=== PATIENT | male | born 1935 | race Caucasian/White ===

== ENCOUNTER 2016-10-27 18:19 | Observation (INO) ==
--- NOTE | 2016-10-27 20:13 | Internal Med History&Physical ---
<Ted Haynes - Last Filed: 10/27/16 21:32> Date of Encounter: 10/27/16 Time of Encounter: 20:00 Assessment and Plan (1) New onset a-fib Current visit: No Status: Acute -No previous history of chest pain or cardiac disease -Asymptomatic at rest. Currently in afib with HR 80 -ECHO in 05/31 shows LVH, Dialated RV, EF 55-60% -Compared new and old EKG. Both show RBB. -Toponin negative according to transfer records -Patient stable -CHADSVASC 3, appropriate for anticoagulation. Patient is in agreement. -Will order TSH/T4 to evaluate thyroid dysfunction/cause of tachycardia Plan -Continuous telemetry monitoring -Will start xerelto when Cr Cl lab available. -Continue previous home metoprolol dose 25mg, -Repeat ECHO to evaluate previous abnormalities -No cardio consult. Patient has established PCP and feel patient will be compliant as outpatient. -Cardiac diet -Likely discharge tomorrow if asymptomatic/normal test results (2) Prostate cancer Current visit: Yes Status: Acute -Underwent radiation >5 years ago (3) Urinary incontinence Current visit: Yes Status: Acute -Continue home medication....patient mentioned oxybutynin, but unsure of dose. Need further clarification before restarting. Qualifiers: Urinary Incontinence type: unspecified incontinence Qualified Code(s): R32 - Unspecified urinary incontinence (4) Arthritis Current visit: Yes Status: Acute -Continue Tylenol once confirmed Internal Medicine - H&P: HPI Chief complaint: L sided chest pain Admitted From: Hospital to Hospital Transfer Plans for Post Hospital Care: Home History of present illness: Mr. Mcnally is a 81 year old male, PMH HTN, Prostate cancer, admitted for new- onset afib. Patient presented to the ED complaining of intermittent left-sided chest pain that began at 1 AM this morning. Occurred while going to the bathroom. Described as sharp and stabbing, nonradiating, lasting 30 seconds. Resolved with rest. He continues to have episodes periodically when he ambulates to the bathroom. Admits to SOB when he ambulates and "unable to mow my lawn anymore or I get SOB when walking up 3 stairs" Denies dizziness, blurred vision, shortness of breath, nausea, vomiting, diaphoresis, back pain, acid reflux. Denies history of CAD, PA, arrythmia. Did have a syncope like episode 5 years ago. Underwent cardio workup with Dr. Mcwilliams that was uneventful. Past Med Surg Social Fam HX - Past Medical History Medical history: hypertension, syncope Psychiatric history: no psych history - Past Surgical History Surgical History: other (back) - Social History Smoking Status: Never smoker Smokeless Tobacco Status: No Alcohol use: none Drug use: none - Additional Family History Additional family history: No family history. Internal Medicine - H&P: Meds Aspirin 81 mg PO DAILY 06/14/15 [History] Potassium Chloride [K-Tab ER] 20 meq PO DAILY 02/23/16 [History] Docusate [Colace] 100 mg PO DAILY PRN 10/27/16 [History] Gluc Huggins/Chondro Huggins A/Vit C/Mn [Glucosamine Chondroitin Tab] 1 each PO DAILY [History] Hydrocortisone Valerate 1 appl TP DAILY PRN 10/27/16 [History] Omeprazole [PriLOSEC] 20 mg PO DAILY 10/27/16 [History] Oxybutynin Chloride [Ditropan Xl] 10 mg PO DAILY 10/27/16 [History] Triamterene/HCTZ 37.5/25mg [Dyazide] 1 each PO DAILY 10/27/16 [History] Allergies No Known Allergies Allergy (Verified 03/28/16 12:35) All Systems PM: A 10-system review of systems was performed and is negative for pertinent findings except as documented above in the HPI. - Cardiovascular Cardiovascular ROS IM: dyspnea on exertion, no diaphoresis, no dyspnea - Respiratory Respiratory: no cough, no dyspnea, no wheezing, no excessive phlegm production - Gastrointestinal Gastrointestinal: no abdominal pain, no diarrhea, no hematemesis, no hematochezia, no melena, no nausea, no vomiting - Neurological Neurological ROS: no confusion, no dizziness - Constitutional General appearance: Present: A&O X 3, pleasant, answers questions appropriately - Head Head exam: Present: atraumatic, normocephalic - Eye Eye exam: Present: PERRL, conjuntiva pink, sclera anicteric Pupils: Present: PERRL - Respiratory Respiratory exam: Present: CTAB. Absent: accessory muscle use, rales, rhonchi, wheezes - Cardiovascular Cardiovascular exam: Present: irregular rhythm. Absent: diastolic murmur, systolic murmur - GI/Abdominal GI/Abdominal exam: Present: no peritoneal signs - Back Exam Additional comments: No pain radiating between scapula - Neurological Exam Neurological exam: Present: oriented X3, no focal deficits. Absent: pronater drift, facial droop, speech deficit - Psychiatric Psychiatric exam: Present: normal affect, normal mood - Other Additional findings: Palpation on chest does not reproduce pain. <Glenn Mix - Last Filed: 10/28/16 04:39> Date of Encounter: 10/27/16 Internal Medicine - H&P: HPI History of present illness: Mr. Mcnally is a 81 year old male All Systems PM: A 10-system review of systems was performed and is negative for pertinent findings except as documented above in the HPI. - Constitutional Vitals: Temp Pulse Resp BP Pulse Ox 98 F 92 16 116/74 95 10/27/16 22:59 10/27/16 22:59 10/27/16 22:59 10/27/16 22:59 10/27/16 22:59 Internal Med - H&P Results - Labs CBC & Chem 7: 10/27/16 22:02 10/27/16 22:02 Labs: Short CBC 10/27/16 Range/Units 22:02 WBC 6.2 (4.3-11.1) K/mcL Hgb 13.1 (12.9-16.9) g/dL Hct 39.6 (37.5-50.1) % Plt Count 205 (140-400) K/mcL Neutrophils # 4.0 (1.6-8.9) K/mcL BMP 10/27/16 22:02 Sodium 139 Potassium 3.3 L Chloride 101 Carbon Dioxide 31 H BUN 21 Creatinine 1.16 Glucose 89 Calcium 9.5 Cardiac Enzymes 10/27/16 Range/Units 22:02 Troponin I 0.01 (0-0.03) ng/mL - EKG Data -: EKG Interpreted by Myself (AFIB with RVR of 113) - Attending Attestation I personally interviewed and examined this patient and my medical decision- making was reviewed with the Resident Physician. I agree with the documented findings, disposition and treatment plan as described.
[2016-10-27 22:30] LABS: Basophils % 0.5 %; Eosinophils # 0.2 K/mcL (0.0-0.6); Eosinophils % 2.7 %; Hematocrit 39.6 % (37.5-50.1); Hemoglobin 13.1 g/dL (12.9-16.9); Immature Granulocytes % 0.3 % (0-4); Lymphocytes # 1.4 K/mcL (0.6-4.6); Lymphocytes % 22.3 %; Mean Corpuscular HGB Conc 33.1 g/dL (31.6-35.5); Mean Corpuscular Hemoglobin 29.4 pg (28.0-33.3); Mean Corpuscular Volume 88.8 fL (83.0-100.0); Mean Platelet Volume 10.1 fL (9.4-12.4); Monocytes # 0.6 K/mcL (0.0-1.3); Monocytes % 10.2 %; Platelet Count 205 K/mcL (140-400); Red Blood Count 4.46 M/mcL (4.19-5.50); Red Cell Distribution Width 13.9 % (11.5-14.5)
[2016-10-27 22:35] LABS: INR 1.2; Prothrombin Time 12.8 Seconds (9.4-12.1)
[2016-10-27 22:38] LABS: Activated Partial Thrombo Time 34.8 Seconds (26.0-36.0)
[2016-10-27 22:45] LABS: BUN/Creatinine Ratio 18 (6-26); Blood Urea Nitrogen 21 mg/dL (8-26); Calcium 9.5 mg/dL (8.6-10.8); Carbon Dioxide 31 mEq/L (19-29); Chloride 101 mEq/L (98-109); Glucose 89 mg/dL (70-99); Osmolality,Calculated 290 (280-300); Potassium 3.3 mEq/L (3.5-4.5); Sodium 139 mEq/L (136-145); eGFR For African Americans > 60 (> 60); eGFR For Non-African Americans > 60 (> 60)
[2016-10-27] MEDS ORDERED: *HR* Rivaroxaban 10 MG TABLET PO SCH (23:00)
[2016-10-27] MEDS: Metoprolol XL (24 HR) Succ 25 MG TAB.ER.24H PO SCH (23:04)
[2016-10-27 23:17] LABS: Thyroid Stimulating Hormone 1.336 mcIU/mL (0.350-4.840)
[2016-10-27] MEDS ORDERED: Naloxone 0.4 MG/ML INJ IVP PRN (23:59)
[2016-10-28] MEDS ORDERED: Potassium Chloride Elixir 20 MEQ/15 ML UDC PO ONE (00:02)
[2016-10-28 05:35] LABS: Basophils % 0.5 %; Eosinophils # 0.2 K/mcL (0.0-0.6); Eosinophils % 3.8 %; Hematocrit 38.8 % (37.5-50.1); Immature Granulocytes % 0.3 % (0-4); Lymphocytes # 1.3 K/mcL (0.6-4.6); Lymphocytes % 22.7 %; Mean Corpuscular HGB Conc 33.5 g/dL (31.6-35.5); Mean Corpuscular Hemoglobin 29.6 pg (28.0-33.3); Mean Corpuscular Volume 88.4 fL (83.0-100.0); Mean Platelet Volume 10.6 fL (9.4-12.4); Monocytes # 0.7 K/mcL (0.0-1.3); Monocytes % 11.8 %; Neutrophils # 3.5 K/mcL (1.6-8.9); Platelet Count 196 K/mcL (140-400); Red Blood Count 4.39 M/mcL (4.19-5.50); Red Cell Distribution Width 13.8 % (11.5-14.5); Segmented Neutrophils % 60.9 %
[2016-10-28 05:56] LABS: BUN/Creatinine Ratio 19 (6-26); Blood Urea Nitrogen 20 mg/dL (8-26); Calcium 9.5 mg/dL (8.6-10.8); Carbon Dioxide 27 mEq/L (19-29); Chloride 104 mEq/L (98-109); Chol/HDL Ratio 3.4 (0-4.9); Cholesterol 155 mg/dL (< 200); Glucose 90 mg/dL (70-99); HDL Cholesterol 45 mg/dL (40-59); LDL Cholesterol,Calculated 93 mg/dL (0-99); Magnesium 1.6 mg/dL (1.6-2.6); Osmolality,Calculated 290 (280-300); Sodium 139 mEq/L (136-145); Triglycerides 87 mg/dL (< 150); eGFR For African Americans > 60 (> 60); eGFR For Non-African Americans > 60 (> 60)
[2016-10-28 06:06] LABS: Hemoglobin A1C 5.4 %
[2016-10-28] MEDS ORDERED: (Glucosamine Chondroit) PO SCH (09:00)
[2016-10-28] MEDS ORDERED: Aspirin 81 MG TAB.CHEW PO SCH (09:00)
[2016-10-28] MEDS: Metoprolol XL (24 HR) Succ 25 MG TAB.ER.24H PO SCH (09:21)
[2016-10-28] MEDS: Triamcinolone Acet 0.1% CRM 15 GM TUBE TP SCH ×2 (09:23→14:13)
--- NOTE | 2016-10-28 13:53 | ECHO - Doppler Report ---
Echocardiogram Name: Juan J Mcnally Date of Study: 10/28/2016 Date: 1935 Ht: 71.0 in Medical Record#: [id number] Age: 81 Wt: 202.0 lb Gender: Male BSA: 2.12 Order #: [id number] Location: [facility] Room #: 3B Reading Physician: Eh Paz DO, ROCÍO VASQUEZ Senior Benefits Manager: Mackenzie Pisano Ordering Physician: Ted Haynes DO Primary Physician: Amie Kramer CNP Indications: AFIB Impressions: LVEF 50%. Not all LV segments were well visualized. Overall, LV function appeared normal. Mild concentric left ventricular hypertrophy. Indeterminate diastolic function. Right ventricle was not well visualized. Grossly, right ventricular function appears normal. No evidence of pulmonary hypertension. No significant valvular dysfunction. Findings: Study Quality * Technically sub-optimal due to poor echocardiographic windows. ECG Findings * Atrial fibrillation. Left Ventricle * LVEF 50%. * Not all LV segments were well visualized. Overall, LV function appeared normal. Normal LV chamber size. * Mild concentric left ventricular hypertrophy. * Indeterminate diastolic function. Right Ventricle * Right ventricle was not well visualized. Grossly, right ventricular function appears normal. Left Atrium * Mildly dilated left atrium. Right Atrium * Mildly dilated right atrium. Interatrial Septum * Interatrial septum not well evaluated. Aortic Valve * Aortic valve not well visualized. * No aortic regurgitation. * No aortic stenosis. Mitral Valve * Normal mitral valve structure and function. * No mitral regurgitation. * No mitral stenosis. Tricuspid Valve * Normal tricuspid valve structure and function. * Trace tricuspid regurgitation. * No evidence of pulmonary hypertension. Pulmonic Valve * Pulmonic valve not well visualized. Aorta * Normally sized aortic root. Pericardium * The pericardium appears normal. IVC * The IVC is not well evaluated. Pulmonary Artery * Pulmonary artery not well visualized. History Hypertension 06/08/15 a Previous Echo was performed. Measurements: BP: 112/ 72 2D Normal Values RVIDd: 3.80 cm <2.7 cm IVSd: 1.30 cm 0.6 - 1.0 cm LVIDd: 4.00 cm 3.7 - 5.6 cm LVPWd: 1.30 cm 0.6 - 1.1 cm LVIDs: 3.20 cm 1.5 - 3.6 cm AO: 3.30 cm < 4.0 cm LA: 4.10 cm 2.0 - 4.0cm %FS: 20.00 cm >25 % LA volume: 38 Mitral Valve Peak E:.60 m/sec Peak E' Lat Dony:11.6 cm/s Peak E' Med Dony:9.26 cm/s E/E' Lat Ratio:5.2 E/E' Med Ratio:6.5 Tricuspid Valve TV Regurg Peak Grad: 21.00mmHg TV Regurg Peak Dony: 2.31m/sec Updated by Eh Paz DO, FACFernando, ROCÍO, ARIANNA on 10/28/2016 1:47:45 PM electronically signed on 10/28/2016 1:49:00 PM with status of Final Wall Motion Rincon: 1=Normal, 2=Hypokinesis, 3=Akinesis, 4=Dyskinesis, 5=Aneurysmal, 6=Hyperkinetic, X=Not Visualized (Blank)=Missing
--- NOTE | 2016-10-28 14:27 | Discharge Summary ---
Date of Encounter: 10/28/16 Time of Encounter: 09:40 - Discharge Diagnosis (1) New onset a-fib Priority: Primary Status: Acute Comments: Patient denies any history of cardiac disease or chest pain in the past. Currently he is asymptomatic and is resting easily in his bed. He reports left chest pain once yesterday. It was very sharp and did not radiate. He denied shortness of breath, nausea, during vomiting, or diaphoresis. He rated it a 10 out of 10. He was seen at [facility] and was transferred here for evaluation. He has not had the chest pain since. Echocardiogram today showed LVEF of 50%. Not all LV segments were well visualized however the function appeared normal. Mild concentric left ventricular hypertrophy. Indeterminate diastolic function. Right ventricular function appears normal. His troponins were negative, as was his chest x-ray. His EKG here and at [place] both showed sinus rhythm with right bundle branch block. His TSH and T4 were both negative and within normal limits. He was started on Xarelto today. He will be sent home with a prescription. He was also started on metoprolol 25 mg by mouth twice a day, which he will continue at home. (2) Prostate cancer Priority: Secondary Status: Chronic Comments: Patient was initially diagnosed with prostate cancer in 2002. It was observed until 2005 when he did radiation. (3) Urinary incontinence Priority: Secondary Status: Acute Comments: Chronic. Patient taking Ditropan. Will continue at home. Qualifiers: Urinary Incontinence type: unspecified incontinence Qualified Code(s): R32 - Unspecified urinary incontinence (4) Arthritis Priority: Secondary Status: Chronic Comments: Chronic. - Discharge Medications Prescriptions: Metoprolol XL (24 HR) Succ [Toprol Xl] 25 mg PO DAILY #30 tab.er.24h Rivaroxaban [Xarelto] 20 mg PO DAILY #30 tablet Home Medications: Aspirin 81 mg PO DAILY 06/14/15 [History] Potassium Chloride [K-Tab ER] 20 meq PO DAILY 02/23/16 [History] Docusate [Colace] 100 mg PO DAILY PRN 10/27/16 [History] Gluc Huggins/Chondro Huggins A/Vit C/Mn [Glucosamine Chondroitin Tab] 1 each PO DAILY [History] Hydrocortisone Valerate 1 appl TP DAILY PRN 10/27/16 [History] Omeprazole [PriLOSEC] 20 mg PO DAILY 10/27/16 [History] Oxybutynin Chloride [Ditropan Xl] 10 mg PO DAILY 10/27/16 [History] Triamterene/HCTZ 37.5/25mg [Dyazide] 1 each PO DAILY 10/27/16 [History] Metoprolol XL (24 HR) Succ [Toprol Xl] 25 mg PO DAILY #30 tab.er.24h 10/28/16 [ Rx] Rivaroxaban [Xarelto] 20 mg PO DAILY #30 tablet 10/28/16 [Rx] Allergies/Adverse Reactions: Allergies No Known Allergies Allergy (Verified 03/28/16 12:35) Procedures/tests Complete & Pending: Procedures Performed prior 72 hours Category Date Time Status EV echocardiogram Routine Y 10/28/16 21:32 Completed Date of admission: 10/27/16 19:20 Primary care physician: Amie Kramer CNP Discharging clinician: Viky Florence - Patient Status Disposition: Home, Self-Care Condition: Good Functional capacity at discharge: independent ambulation Overall status at discharge: patient is back to baseline - Discharge Instructions Follow Up With: Amie Kramer CNP [Primary Care Provider] - 11/01/16 1:00 pm - Diet and Activity Activity: increase activity as tolerated Diet: advance to your usual diet Hospital course: Mr. Mcnally is a 81 year old male with a history of prostate cancer, urinary incontinence, and arthritis. He is alert and oriented and very energetic for his age. He presented to [facility] emergency department yesterday with sudden onset left chest pain that was sharp, without radiation. He denied any associated symptoms such as shortness of breath, diaphoresis, vomiting, nausea. His cardiac workup was negative. Troponins were negative as was his chest x- ray. Echocardiogram today shows LVEF of 50% with normal LV function. Indeterminate diastolic function. He says that he has been very weak for the last few months and has trouble doing much of anything. He says that he cannot mow his yard anymore and becomes weak with walking. He says he is dizzy and lightheaded, but has been since 200 he started radiation for his prostate cancer. He denies change in frequency or intensity of dizziness and lightheadedness. He denies palpitations. He denies shortness of breath as well. His lungs are clear posteriorly and he has +1 nonpitting edema to bilateral lower extremities. He says that is normal for him. He is not appeared to be in fluid overload at this time. His vital signs have remained within normal limits and stable, all labs are within normal limits. He says that he wants to follow-up with his primary care physician and does not need to follow-up with cardiology. Patient is stable for discharge. - Time Spent with Patient Total time spent providing and/or coordinating discharge services: - Constitutional Vitals: Temp Pulse Resp BP Pulse Ox 96.3 F L 83 16 112/64 93 10/28/16 11:34 10/28/16 11:34 10/28/16 11:34 10/28/16 11:34 10/28/16 11:34 General appearance: Present: cooperative, A&O X 3, pleasant, answers questions appropriately - Head Head exam: Present: normal inspection - Eye Eye exam: Present: normal appearance - ENT ENT exam: Present: mucous membranes moist, normal exam - Neck Neck exam general surgery: Present: normal inspection. Absent: lymphadenopathy , tenderness - Respiratory Respiratory exam: Present: decreased breath sounds. Absent: accessory muscle use, chest wall tenderness, rhonchi, wheezes - Cardiovascular Cardiovascular exam: Present: irregular rhythm, +S1, +S2. Absent: diastolic murmur, systolic murmur - Expanded Cardiovascular Exam Peripheral pulses: 1+: Dorsalis Pedis (L) PM, Dorsalis Pedis (R) PM - GI/Abdominal GI/Abdominal exam: Present: normal bowel sounds, soft. Absent: hepatomegaly, tenderness - Extremities Exam Extremities exam: Present: normal inspection, pedal edema, warm, radial pulses palpable and symetrical. Absent: tenderness - Neurological Exam Neurological exam: Present: alert, oriented X3, no focal deficits. Absent: motor sensory deficit, facial droop, speech deficit
[2016-10-28 14:55] VITALS: BP 119/75
== END 2016-10-28 16:45 | disposition home or self-care (01) ==
LOC: 3BNU
PROVIDERS: ADMIT Internal Medicine Endocrinology, Diabetes & Metabolism; ATTEND Registered Nurse

== ENCOUNTER 2019-03-11 08:29 | Observation (INO) ==
[~2019-03-11 08:29] MED LIST: Bacitracin 50,000 UNIT, Polymyxin B Sulfate 500,000 UNIT, Sodium Chloride IRRigation 1,... IR ONE
--- NOTE | 2019-03-11 08:29 | Anesthesia Evaluation PreOp ---
Date of Encounter: 03/11/19 Time of Encounter: 08:53 - Past History Cardiac History: Arrhythmia (A FIB), Other (STRESS TEST NORMAL EF 61%) Alcohol Use: none Drug use: none Medications and Allergies Aspirin 81 mg PO DAILY 06/14/15 [History] Potassium Chloride [K-Tab ER] 20 meq PO DAILY 02/23/16 [History] Docusate [Colace] 100 mg PO DAILY PRN 10/27/16 [History] Gluc Huggins/Chondro Huggins A/Vit C/Mn [Glucosamine Chondroitin Tab] 1 each PO DAILY 10/27/16 [History] Hydrocortisone Valerate 1 appl TP DAILY PRN 10/27/16 [History] Omeprazole [PriLOSEC] 20 mg PO DAILY 10/27/16 [History] Oxybutynin Chloride [Ditropan XL] 10 mg PO DAILY 10/27/16 [History] Triamterene/HCTZ 37.5/25mg [Dyazide] 1 each PO DAILY 10/27/16 [History] Metoprolol XL (24 HR) Succ [Toprol Xl] 25 mg PO DAILY #30 tab.er.24h 10/28/16 [Rx] Rivaroxaban [Xarelto] 20 mg PO DAILY #30 tablet 10/28/16 [Rx] Morphine Sulfate [Arymo ER] 15 mg PO Q8H PRN 3 Days #9 tab.po.er 01/23/19 [Rx] Allergy/AdvReac Type Severity Reaction Status Date / Time oxybutynin Allergy Confusion Verified 03/06/19 14:38 - Meds/Allergy Pre-op Review Medications Reviewed: Yes Allergies Reviewed: Yes Beta Blockers on Current Med List: Yes Anesthesia Results - Labs Laboratory Tests 12/19/18 03/06/19 03/06/19 15:17 15:02 15:02 Hgb 13.4 Hct 42.8 Plt Count 319 PT 11.9 APTT 37.8 H Sodium Potassium Prostate Specific Ag 11.66 H 03/06/19 15:02 Hgb Hct Plt Count PT APTT Sodium 136 Potassium 4.1 Prostate Specific Ag - Imaging EKG: report reviewed, image reviewed
[2019-03-11] MEDS ORDERED: CeFAZolin Syr 2,000MG/20 ML 2,000 MG/20 ML SYRINGE IVPB ONE (09:00)
[2019-03-11] MEDS ORDERED: Ringers Solution, Lactated 1,000 ML IVC SCH ×2 (09:00→13:02)
--- NOTE | 2019-03-11 09:17 | Anesthesia Evaluation PreOp ---
Date of Encounter: 03/11/19 Time of Encounter: 09:14 - Past History Planned Operation: LUM ERWIN Cardiac History: HTN, Hyperlipidemia, Arrhythmia (A FIB HR 144 ON PREOP EKG FOR STRESS TEST, CURRENTLY 125 - GIVING MORNING METOPROLOL DOSE) DESKTOP PUBLISHING SPECIALIST History: Other (LUMBAR RADICULOPATHY (URINARY AND BOWEL INCONTINENCE FROM RADIATION FOR PROSTATE CANCER 13 YEARS AGO) LEFT ER AMA 02/01) Other Medical History: GERD Anesthesia History: No Prior Anesthetic Complications, Past Anesthesia (SPINE SURGERY 1983, CATARACT, NSR, CIRC, PROSTATE BIOPSY, NECK MASS 2013) Alcohol Use: none Drug use: none Medications and Allergies Aspirin 81 mg PO DAILY 06/14/15 [History] Potassium Chloride [K-Tab ER] 20 meq PO DAILY 02/23/16 [History] Docusate [Colace] 100 mg PO DAILY PRN 10/27/16 [History] Gluc Huggins/Chondro Huggins A/Vit C/Mn [Glucosamine Chondroitin Tab] 1 each PO DAILY 10/27/16 [History] Hydrocortisone Valerate 1 appl TP DAILY PRN 10/27/16 [History] Omeprazole [PriLOSEC] 20 mg PO DAILY 10/27/16 [History] Oxybutynin Chloride [Ditropan XL] 10 mg PO DAILY 10/27/16 [History] Triamterene/HCTZ 37.5/25mg [Dyazide] 1 each PO DAILY 10/27/16 [History] Metoprolol XL (24 HR) Succ [Toprol Xl] 25 mg PO DAILY #30 tab.er.24h 10/28/16 [Rx] Rivaroxaban [Xarelto] 20 mg PO DAILY #30 tablet 10/28/16 [Rx] Morphine Sulfate [Arymo ER] 15 mg PO Q8H PRN 3 Days #9 tab.po.er 01/23/19 [Rx] Allergy/AdvReac Type Severity Reaction Status Date / Time oxybutynin Allergy Confusion Verified 03/06/19 14:38 - Meds/Allergy Pre-op Review Medications Reviewed: Yes Allergies Reviewed: Yes Beta Blockers on Current Med List: Yes Anesthesia Results - Labs Laboratory Tests 03/06/19 03/06/19 03/06/19 15:02 15:02 15:02 Hgb 13.4 Hct 42.8 Plt Count 319 PT 11.9 Sodium 136 Potassium 4.1 - Imaging EKG: report reviewed, image reviewed Anesthesia Exam O2 Sat Height 1.8 m Weight 103.873 kg O2 Sat by Pulse Oximetry 96 Vital Signs Temp Pulse Resp BP Pulse Ox 97.8 F 120 18 120/75 96 03/11/19 09:15 03/11/19 09:15 03/11/19 09:15 03/11/19 09:15 03/11/19 09:15 - HEENT Pupil (Motor): Pupils equal, EOMI Mallampati: III Teeth: Normal - DESKTOP PUBLISHING SPECIALIST LOC: Oriented DESKTOP PUBLISHING SPECIALIST Motor: Normal RUE, Normal LUE, Normal Face, Deficit RLE, Deficit LLE DESKTOP PUBLISHING SPECIALIST Sensory: Normal: RUE, LUE, RLE, LLE, Face - Cardiac Rhythm: Regular Murmur: None JVD: No - Pulmonary Breath Sounds: bilateral Clear Respiratory Effort: Symmetrical Anesthesia Assess/Plan ASA Score: 3 Anesthetic Plan: General Monitoring Plan: Standard Monitors Recovery Plan: PACU
--- NOTE | 2019-03-11 10:09 | History & Physical Report ---
Date of Encounter: 03/11/19 Time of Encounter: 10:09 24 Hour HP Update - Instructions Instructions: If the History and Physical is less than 30 days old and was completed prior to A.M. admission and or procedure and has NOT been updated on calendar day of procedure please complete this update prior to performing procedure. - Update Patient reports changes in Medical Condition: No Changes in examination, assessment, or condition: No Changes in Medication: No Preop tests/diagnostics Reviewed: Yes Pre-Op MRSA Screen: Negative Surgery Remains Indicated: Yes Consent for Planned Operative Procedure(s) Verified: Yes - Pre-Operative Checklist Preoperative Checklist Indicated: No Prophylactic Antibiotic Ordered: Yes Home Medications Include Beta Daryn: Yes Beta Daryn Taken Today (Day of Surgery): No Beta Daryn Taken Yesterday (Day Prior to Surgery): Yes Is VTE Prophylaxis Indicated?: Yes
[2019-03-11] MEDS ORDERED: Dexamethasone 4 MG/ML VIAL ONE (10:27)
[2019-03-11] MEDS ORDERED: Ondansetron 4 MG/2 ML VIAL ONE (10:27)
[2019-03-11] MEDS ORDERED: *HR* FentaNYL (PF) 100 MCG/2 ML VIAL ONE (10:27)
[2019-03-11] MEDS ORDERED: Lidocaine -MPF 2% 2 ML VIAL ONE (10:27)
[2019-03-11] MEDS ORDERED: *HR* Succinylcholine 200 MG/10 ML VIAL IVP ONE (10:27)
[2019-03-11] MEDS ORDERED: *HR* Propofol 200 MG/20 ML VIAL IVP ONE (10:27)
[2019-03-11] MEDS ORDERED: Lidocaine -MPF 4% 5 ML AMPUL ONE (10:27)
[2019-03-11] MEDS ORDERED: *HR* PHENYLEPHRINE 1,000 MCG/10 ML SYRINGE IVP ONE (11:01)
[2019-03-11] MEDS ORDERED: *HR* HYDROMORPHONE 2 MG/ML VIAL ONE (12:04)
--- NOTE | 2019-03-11 12:22 | Orthopedic Operative Note ---
Date of procedure: 03/11/19 Pre-op diagnosis: Lumbar stenosis, lumbar radiculopathy Post-op diagnosis: same Operation/Findings: Laminectomy L3-4: The patient was brought to the operative theater where he underwent general endotracheal anesthesia. He was given antibiotics prior to the start of the procedure. Compression boots and stockings were used for deep vein thrombosis prophylaxis. The patient was placed prone on a Peng table. The back was prepped and draped in the usual sterile fashion. An incision was marked and centered over the L3-L4 interspaces in the midline. We used Bovie cautery to make an incision and then this incision was deepened through the lumbar fascia. Bovie cautery and Charles elevators were used to reflect the paraspinal musculature to the lateral extent of the L3-4 facet joints bilaterally. Samanta clamps were placed over the spinous processes of L3 and L4 and an intraoperative lateral fluorograph was obtained. A discusssion was held between the radiologist and surgeon who both confirmed we were at the correct operative level. We then removed the supraspinous and interspinous ligaments between L3 and L4 and subsequently removed the ligamentum flavum from its origin on the distal undersurface of the L3 lamina. The ligamentum flavum was noted to be quite hypertrophied as well as the facets were hypertrophied. This required performing a laminectomy of L3 with partial medial facetectomies including undercutting of the L3-L4 facets to decompress the lateral recesses. After the decompression was complete we checked the foramen and the traversing nerve roots at L3-4 and they were found to be free and patent. We copiously irrigated the wound and then closed the wound in layers with 1 Vicryl for the fascia, 2-0 Vicryl for the subcutaneous tissue, and Dermabond was used for skin closure. Sterile dressings were placed over the wound, the patient was turned supine in a hospital bed, and was extubated in the operative theater. All sponge needles and instrument counts were correct at the end of the procedure. The patient tolerated the procedure well without complications. Anesthesia: GETA Surgeon: Flaquito Jackman Jr Was there an preschool teacher's assistant present: No Estimated blood loss (cc): 60 Specimen: None Condition: stable Disposition: PACU
--- NOTE | 2019-03-11 12:50 | Anesthesia Evaluation Post Op ---
Date of Encounter: 03/11/19 Time of Encounter: 12:49 - Vital Signs Vital Signs: Vital Signs/O2 Sat, Most Current Temp Pulse Resp BP Pulse Ox 97.9 F 90 13 121/88 95 03/11/19 12:28 03/11/19 12:38 03/11/19 12:38 03/11/19 12:38 03/11/19 12:38 - Lungs Lungs: Clear Ascult./Percussion - Airway Airway: Non-obstructed - Cardiovascular Regular Rate - Mental Status Mental Status: Alert & Oriented, Answers Appropriately - Pain Pain Scale: 3 Pain Scale used: Numeric (1 - 10) - Nausea Vomiting Nausea Vomiting: Not Present - Hydration Hydration: Ice chips - Discharge PostOp Status: Transfer Patient to floor
[2019-03-11] MEDS ORDERED: Acetaminophen 325 MG TABLET PO PRN (13:02)
[2019-03-11] MEDS ORDERED: hydrOXYzine pamoate 25 MG CAPSULE PO PRN (13:02)
[2019-03-11] MEDS ORDERED: Naloxone 0.4 MG/ML INJ IVP PRN (13:02)
[2019-03-11] MEDS ORDERED: Ondansetron 4 MG/2 ML VIAL IVP PRN (13:02)
[2019-03-11] MEDS ORDERED: HYDROCORTISONE VALERATE TP PRN (13:02)
[2019-03-11] MEDS: *HR* HYDROcodone/Acet 5/325 mg TABLET PO PRN (13:30)
[2019-03-12] MEDS: *HR* LORazepam 0.5 MG TABLET PO PRN (01:00)
[2019-03-12] MEDS: *HR* OxyCODONE Immed Rel 5 MG TABLET PO PRN ×2 (06:51→17:15)
[2019-03-12] MEDS: *HR* Rivaroxaban 10 MG TABLET PO SCH (08:50)
[2019-03-12] MEDS: Metoprolol XL (24 HR) Succ 50 MG TAB.ER.24H PO SCH (08:50)
[2019-03-12] MEDS: Aspirin 81 MG TAB.CHEW PO SCH (08:50)
[2019-03-12] MEDS: Multivitamin Liquid 15 ML UDC PO SCH (08:51)
[2019-03-12] MEDS ORDERED: NON-FORMULARY MEDICATION 1 EACH EACH (Mirabegron [Myrbetriq] 50 MG) PO SCH (09:00)
[2019-03-12] MEDS ORDERED: NON-FORMULARY MEDICATION 1 EACH EACH (Gluc/Chon-Msm#1/C/Mang/Bos/Bor [Osteo Bi-Flex Caplet PO SCH (09:00)
[2019-03-12] MEDS ORDERED: *HR* Metoprolol 5 MG/5 ML VIAL IVP ONE (10:10)
[2019-03-12] MEDS ORDERED: Furosemide 40 MG/4 ML VIAL IVP ONE (10:11)
--- NOTE | 2019-03-12 10:27 | Cardiology Consult Note ---
<Karel Saleem R - Last Filed: 03/12/19 10:37> Date of Encounter: 03/12/19 Time of Encounter: 10:23 Assessment and Plan (1) Atrial fibrillation with RVR Current Visit: Yes Status: Acute Known hx of A-Fib, on Toprol XL 50mg daily and anticoagulated on Xarelto. S/P Laminectomy L3-4 yesterday. Per pt, had not taken his meds since Monday. Suspect RVR secondary to meds being held and back pain s/p laminectomy, fluid overload. HR 130s currently. Received Toprol XL 50mg this AM. Will give IV Lopressor 5mg once. Will check HR later today and if still not better rate controlled, will then start cardizem gtt. Give one time dose of IV Lasix. Anticoagulated on Xarelto. Check Labs. Continue to follow. (2) Fluid overload Current Visit: Yes Status: Acute Moderate BLE edema noted on exam. EF preserved on recent TTE. Suspect fluid overload secondary to IV fluids s/p surgery and Dyazide being held. Will give one time dose of IV Lasix 40mg. Continue to follow. Qualifiers: Hypervolemia type: unspecified Qualified Code(s): E87.70 - Fluid overload, unspecified Discussion w patient/family: The assessment and plan as outlined above was discussed with the patient and/or family members who expressed understanding and agreement. All questions were answered. Thank you for involving us in the care of your patient. Please call with any questions. I will discuss all the above with Dr. Mendieta and make changes as necessary. History of Present Illness Consult date: 03/12/19 Consult reason: A-Fib RVR Chief complaint: back pain History of present illness: Mr. Mcnally is a 84 year old male with PMH of essential hypertension and atrial fibrillation anticoagulated on Xarelto. He underwent lumbar laminectomy yesterday 03/11 and is noted to be in A-Fib RVR. Cardiology consulted for further recs. Pt denies chest pain, dyspnea or palpitations. Reports increased BLE edema. States he had not taken any meds since Monday morning. HR 130s at bedside. Prior CV testing: TTE 03/04/19: LVEF 55%. Indeterminate diastolic function. Mildly dilated left atrium. Grossly normal right ventricular size and function. Mild tricuspid regurgitation. No pulmonary hypertension. Nuclear stress test 03/04/19: Gated EF 52%. Perfusion imaging negative for ischemia or infarct. Past Med Surg Social Fam HX - Past Medical History Medical history: atrial fibrillation, cancer, GERD, hyperlipidemia, hypertension, migraine, syncope Additional medical history: prostate ca, lumbar stenosis Psychiatric history: anxiety, depression - Past Surgical History Surgical History: cataract Additional surgical history: SPINAL SURGERY. CATARACTS REMOVED. PROSTATE CANCER. BLADDER DYSFUNCTION DUE TO RADIATION. heart cathh. ex neck mass - Social History Smoking Status: Never smoker Smokeless Tobacco Status: No Alcohol use: none Drug use: none - Family History Father Living Status: Hx Family Cardiac Disorders: Yes (Pacemaker) Mother Living Status: Hx Family Respiratory Disorders: Yes (Emphysema) Medications and Allergies Aspirin 81 mg PO DAILY 06/14/15 [History] Potassium Chloride [K-Tab ER] 20 meq PO DAILY 02/23/16 [History] Docusate [Colace] 100 mg PO DAILY PRN 10/27/16 [History] Hydrocortisone Valerate 1 appl TP DAILY PRN 10/27/16 [History] Omeprazole [PriLOSEC] 20 mg PO DAILY 10/27/16 [History] Triamterene/HCTZ 37.5/25mg [Dyazide] 1 each PO QAM 10/27/16 [History] Gluc/Jong-MSM#1/C/John/Veto/Bor [Osteo Bi-Flex Caplet] 1 tab PO DAILY 03/11/19 [History] LORazepam [Ativan] 0.5 mg PO BID PRN 03/11/19 [History] Metoprolol Succinate [Toprol Xl] 50 mg PO DAILY 03/11/19 [History] Mirabegron [Myrbetriq] 50 mg PO DAILY 03/11/19 [History] Multivitamin [Daily Multiple Vitamin] 1 tab PO DAILY 03/11/19 [History] OxyCODONE/APAP 5/325 [Percocet 5/325 MG] 1 tab PO Q6H PRN 03/11/19 [History] Rivaroxaban [Xarelto] 20 mg PO DAILY 03/11/19 [History] Sertraline [Zoloft] 50 mg PO DAILY 03/11/19 [History] hydrOXYzine HCl [Hydroxyzine HCl] 50 mg PO Q8H PRN 03/11/19 [History] Allergy/AdvReac Type Severity Reaction Status Date / Time oxybutynin Allergy Confusion Verified 03/11/19 10:37 All Systems Review: The remainder of the systems were reviewed and are negative - Cardiovascular Cardiovascular: as per HPI, leg edema - Musculoskeletal Musculoskeletal: back pain Physical Examination Vital Signs, Last 4 Hours Temp Pulse Resp BP 03/12/19 06:33 97.9 F 104 18 132/73 Vital Signs Temp Pulse Resp BP Pulse Ox 03/12/19 06:33 97.9 F 104 18 132/73 03/11/19 18:58 98.0 F 104 17 100/59 96 03/11/19 16:24 97.6 F 84 16 93/65 95 03/11/19 15:17 97.3 F L 84 15 96/62 92 03/11/19 14:15 97.8 F 98 16 119/81 92 03/11/19 13:45 97.8 F 91 16 123/83 97 03/11/19 13:13 97.8 F 85 16 130/86 97 03/11/19 12:58 98.0 F 99 15 140/97 97 03/11/19 12:48 105 13 140/93 95 03/11/19 12:38 90 13 121/88 95 03/11/19 12:28 97.9 F 93 16 128/85 100 Intake and Output 03/11/19 03/12/19 03/12/19 23:59 07:59 15:59 Intake Total 340 / 340 100 / 580 480 / 580 Balance 340 / 280 100 / 580 480 / 580 Intake: IV Fluids 100 / 100 100 / 100 Ancef 2,000 MG In 0.9 % Sodium 100 / 100 100 / 100 Chloride 100 ML @ 200 mls/hr IVPB Q8HR [facility] Rx#:[id number] Oral 240 / 240 480 / 480 Other: Meal Breakfast Percent of Meal Consumed 100% 100% # Urine Diapers 1 Weight 103.9 kg Patient Weight 03/12/19 23:59 Weight 103.9 kg General: Conversant, No Apparent Distress HEENT: Atraumatic, Normocephaly, Mucus Membranes Moist Neck: No JVD, Normal carotid pulses Cardiac: Other Lungs: Normal Breath Sounds, No Wheeze, Rales, Rhonchi Neuro: Alert and responsive, No focal deficits noted Abdomen: Soft, Non-Tender Skin: No rashes noted on visualized skin Musculoskeletal: No Chest Wall Tenderness Extremities: Other (moderate LE edema ) Results - Imaging and Cardiology Stress Test: report reviewed Echo: report reviewed - EKG Interpretation EKG results cardiology: other (12 hr tele AVG HR 105, A-Fib) Consult Discharge Plan - Plan Referrals: Amie Kramer, DRY WALL INSTALLER [Primary Care Provider] - <Mel Mendieta - Last Filed: 03/12/19 12:39> Date of Encounter: 03/12/19 - Attending Attestation I examined this patient and my medical decision-making was reviewed with the DRY WALL INSTALLER. I agree with the documented findings, disposition and treatment plan as described. Mr. Mcnally has known history of AFIB developing RVR post operatively after back surgery. Patient is comfortable at bedside without chest pain and not requiring supplemental oxygen. Recommend restarting home metoprolol which he has not taken since Monday. Will also benefit from IV diuresis. Continue anticoagulation for AFIB. Further recommendations to follow clinical course. Assessment and Plan Discussion w patient/family: The assessment and plan as outlined above was discussed with the patient and/or family members who expressed understanding and agreement. All questions were answered. Thank you for involving us in the care of your patient. Please call with any questions. History of Present Illness History of present illness: Mr. Mcnally is a 84 year old male All Systems Review: The remainder of the systems were reviewed and are negative Results 03/12/19 11:05 03/12/19 11:05 Lab Results 03/12/19 03/12/19 11:05 11:05 WBC 9.8 Hgb 12.3 L Hct 38.9 Plt Count 254 Sodium 139 Potassium 4.5 Chloride 103 Carbon Dioxide 30 H BUN 24 H Creatinine 1.06 Glucose 135 H Calcium 8.9
[2019-03-12 11:16] LABS: Basophils % 0.2 %; Eosinophils # 0.1 K/mcL (0.0-0.6); Eosinophils % 1.3 %; Hematocrit 38.9 % (37.5-50.1); Hemoglobin 12.3 g/dL (12.9-16.9); Immature Granulocytes % 0.3 % (0-4); Lymphocytes # 1.1 K/mcL (0.6-4.6); Lymphocytes % 11.3 %; Mean Corpuscular HGB Conc 31.6 g/dL (31.6-35.5); Mean Corpuscular Hemoglobin 28.9 pg (28.0-33.3); Mean Corpuscular Volume 91.5 fL (83.0-100.0); Mean Platelet Volume 9.2 fL (9.4-12.4); Monocytes # 0.9 K/mcL (0.0-1.3); Monocytes % 9.5 %; Neutrophils # 7.6 K/mcL (1.6-8.9); Platelet Count 254 K/mcL (140-400); Red Blood Count 4.25 M/mcL (4.19-5.50); Red Cell Distribution Width 14.5 % (11.5-14.5); Segmented Neutrophils % 77.4 %; White Blood Count 9.8 K/mcL (4.3-11.1)
[2019-03-12 11:40] LABS: BUN/Creatinine Ratio 23 (6-26); Blood Urea Nitrogen 24 mg/dL (8-23); Calcium 8.9 mg/dL (8.6-10.3); Carbon Dioxide 30 mEq/L (23-29); Chloride 103 mEq/L (98-107); Glucose 135 mg/dL (70-105); Osmolality,Calculated 294 (280-300); Potassium 4.5 mEq/L (3.5-5.1); Sodium 139 mEq/L (136-145); eGFR For African Americans > 60 (> 60); eGFR For Non-African Americans > 60 (> 60)
--- NOTE | 2019-03-12 11:41 | Orthopedics Progress Note ---
Date of Encounter: 03/12/19 Time of Encounter: 13:00 - Assessment and Plan (1) Lumbar stenosis Current Visit: Yes Status: Chronic Qualifiers: Neurogenic claudication status: unspecified Qualified Code(s): M48.061 - Spinal stenosis, lumbar region without neurogenic claudication (2) Lumbar radiculopathy Current Visit: Yes Status: Chronic (3) Atrial fibrillation with RVR Current Visit: Yes Status: Acute (4) Status post laminectomy Current Visit: Yes Status: Acute Subjective Principal diagnosis: s/p lami Interval history: POD#1 s/p Laminectomy L3-4 [Lumbar stenosis, lumbar radiculopathy] 03/11/19 Patient seen at bedside. A&Ox3. Patient's daughter and spouse at bedside. They all express frustration and concern regarding events regarding his heart today. Dressing and incision c/d/i No calf tenderness, erythema, or warmth. Neurovascularly intact b/l LE. Labwork, vitals, and medications reviewed. Pain control: Adequate Participating in therapy. All questions and concerns addressed. Educated on use of incentive spirometer, ambulation, and hydration. Patient educated on post-operative restrictions and care. Addressed: patient found to be in Afib RVR. Cardiology was consulted for management. Patient currently on Tele and Cardizem gtt drip. Patient course and disposition discussed with Dr. Jackman D/C plan: Home once medically stable for discharge. Patient and family members express understanding regarding continued inpatient stay for medical management. Objective Vital signs: Vital Signs Temp Pulse Resp BP Pulse Ox 03/12/19 06:33 97.9 F 104 18 132/73 03/11/19 18:58 98.0 F 104 17 100/59 96 03/11/19 16:24 97.6 F 84 16 93/65 95 03/11/19 15:17 97.3 F L 84 15 96/62 92 03/11/19 14:15 97.8 F 98 16 119/81 92 03/11/19 13:45 97.8 F 91 16 123/83 97 03/11/19 13:13 97.8 F 85 16 130/86 97 03/11/19 12:58 98.0 F 99 15 140/97 97 03/11/19 12:48 105 13 140/93 95 03/11/19 12:38 90 13 121/88 95 03/11/19 12:28 97.9 F 93 16 128/85 100 Intake and Output 03/11/19 03/12/19 03/12/19 23:59 07:59 15:59 Intake Total 340 / 340 100 / 580 480 / 580 Balance 340 / 280 100 / 580 480 / 580 Intake: IV Fluids 100 / 100 100 / 100 Ancef 2,000 MG In 0.9 % Sodium 100 / 100 100 / 100 Chloride 100 ML @ 200 mls/hr IVPB Q8HR [facility] Rx#:[id number] Oral 240 / 240 480 / 480 Other: Meal Breakfast Percent of Meal Consumed 100% 100% # Urine Diapers 1 Weight 103.9 kg Patient Weight 03/12/19 23:59 Weight 103.9 kg - Labs CBC & BMP: 03/13/19 01:35 03/13/19 01:35 Labs: Abnormal lab results Hgb 12.3 g/dL (12.9-16.9) L 03/12/19 11:05 MPV 9.2 fL (9.4-12.4) L 03/12/19 11:05 Carbon Dioxide 30 mEq/L (23-29) H 03/12/19 11:05 BUN 24 mg/dL (8-23) H 03/12/19 11:05 Glucose 135 mg/dL (70-105) H 03/12/19 11:05 Consult Discharge Plan - Plan Referrals: Amie Kramer, BED LASTER [Primary Care Provider] -
[2019-03-12] MEDS: *HR* HYDROcodone/Acet 5/325 mg TABLET PO PRN (13:51)
[2019-03-12] MEDS ORDERED: Furosemide 20 MG/2 ML VIAL IVP ONE (21:00)
[2019-03-13] MEDS ORDERED: Haloperidol Lactate 5 MG/ML VIAL IM ONE (00:38)
[2019-03-13] MEDS ORDERED: Haloperidol Lactate 5 MG/ML VIAL IVP ONE (01:33)
[2019-03-13] MEDS ORDERED: *HR* Promethazine 25 MG/ML VIAL IVP ONE (01:34)
[2019-03-13 02:00] LABS: Hematocrit 36.5 % (37.5-50.1); Hemoglobin 12.1 g/dL (12.9-16.9); Mean Corpuscular HGB Conc 33.2 g/dL (31.6-35.5); Mean Corpuscular Hemoglobin 29.4 pg (28.0-33.3); Mean Corpuscular Volume 88.6 fL (83.0-100.0); Mean Platelet Volume 10.1 fL (9.4-12.4); Platelet Count 245 K/mcL (140-400); Red Blood Count 4.12 M/mcL (4.19-5.50); Red Cell Distribution Width 14.4 % (11.5-14.5); White Blood Count 9.4 K/mcL (4.3-11.1)
[2019-03-13 02:08] LABS: BUN/Creatinine Ratio 23 (6-26); Blood Urea Nitrogen 22 mg/dL (8-23); Carbon Dioxide 27 mEq/L (23-29); Chloride 99 mEq/L (98-107); Glucose 129 mg/dL (70-105); Osmolality,Calculated 285 (280-300); Potassium 3.6 mEq/L (3.5-5.1); Sodium 135 mEq/L (136-145); eGFR For African Americans > 60 (> 60); eGFR For Non-African Americans > 60 (> 60)
--- NOTE | 2019-03-13 02:49 | Internal Medicine Consult Note ---
Date of Encounter: 03/12/19 Time of Encounter: 23:30 - Assessment and Plan (1) Atrial fibrillation with RVR Current Visit: Yes Status: Acute Assessment and plan: Acute on chronic Afib w/RVR. Patient's HR 130s to 140s. Patient takes Toprol-XL 50 mg daily as well as Xarelto. Pt. has not taken his medications since Monday. Cardiology started Cardizem gtt. Will continue and titrate as needed. Continuous cardiac telemetry. Continue pts. PO Toprol XL and Xarelto. Patient is high risk for further morbidity and complications d/t status post-laminectomy, current Afib w/RVR requiring Cardzem gtt and close monitoring, fluid overload; and risk factors of HTN, HLD, and obesity. Outpatient in a bed. (2) Fluid overload Current Visit: Yes Status: Acute Assessment and plan: Acute edema of bilateral LEs. Cardiology recommendation for IV lasix d/t fluid overload r/t fluids administered during surgery and Dyazide being held. Strict I &O. Will use IV fluid judiciously if warranted. Qualifiers: Hypervolemia type: unspecified Qualified Code(s): E87.70 - Fluid overload, unspecified (3) Status post laminectomy Current Visit: Yes Status: Acute Assessment and plan: Status post-laminectomy today. Pt. reports mild pain. Stair-step pain medications ordered for pain mgmt. Pt. to follow Surgery's recommendation for no bending, lifting, no twisting body movements. Falls/safety precautions and up with assist. (4) HTN (hypertension) Current Visit: Yes Status: Chronic Assessment and plan: Hx of chronic HTN. Monitor pt. and VS. Continue pts. Dyazide and metoprolol. Qualifiers: Hypertension type: essential hypertension Qualified Code(s): I10 - Essential (primary) hypertension (5) HLD (hyperlipidemia) Current Visit: Yes Status: Chronic Assessment and plan: Hx of chronic HLD. No statin in home meds. Will obtain lipid panel. Qualifiers: Hyperlipidemia type: pure hypercholesterolemia Qualified Code(s): E78.00 - Pure hypercholesterolemia, unspecified; E78.0 - Pure hypercholesterolemia (6) GERD (gastroesophageal reflux disease) Current Visit: Yes Status: Chronic Assessment and plan: Hx of chronic GERD. Continue pts. Prilosec. Qualifiers: Esophagitis presence: esophagitis presence not specified Qualified Code(s): K21.9 - Gastro-esophageal reflux disease without esophagitis (7) Urinary incontinence Current Visit: Yes Status: Chronic Assessment and plan: Hx of urinary incontinence r/t prostate cancer. Continue pts. Myrbetriq. Monitor I&O. Qualifiers: Urinary Incontinence type: unspecified incontinence Qualified Code(s): R32 - Unspecified urinary incontinence (8) DVT prophylaxis Current Visit: Yes Status: Acute Assessment and plan: Bilateral SCDs on LEs for DVT prophylaxis post-laminectomy. - Time Spent With Patient Total time spent is greater than 50% in coordination of care (as documented) at patient's floor/unit and/or counseling patient: Greater than 35 minutes Internal Medicine - CN: HPI - Data of Consult Patient: new to practice Consult date: 03/12/19 Requesting Physician: Flaquito Jackman Jr MD - Consult Narrative Reason for consult: Medical mgmt of Afib History of present illness: Mr. Mcnally is a 84 year old male admitted for lumbar stenosis and lumbar radiculopathy who underwent a laminectomy today. Patient has hx of atrial fibrillation and converted to Afib w/RVR post-laminectomy. Hospitalist group was consulted for medical mgmt as well as Cardiology who placed patient on Cardizem gtt. At the time of the patient's assessment for consult, HR was 130s to 140s on gtt. Patient denied CP or SOB. Patient's PMH includes HTN, HLD, migraines, GERD, prostate cancer w/urinary incontinence, and syncope. Patient denies recent illness, fever, chills, nausea, vomiting, headache, changes in vision, unusual bleeding, chest pain, shortness of breath, abdominal pain, diarrhea, constipation, numbness, tingling, dizziness, lightheadedness, cough, chest congestion, or presyncope. Past Med Surg Social Fam HX - Past Medical History Source: patient, old records reviewed, obtained from family ( ) Medical history: atrial fibrillation, cancer, GERD, hyperlipidemia, hypertension, migraine, syncope Additional medical history: prostate ca, lumbar stenosis Psychiatric history: anxiety, depression - Past Surgical History Surgical History: cataract Additional surgical history: SPINAL SURGERY. CATARACTS REMOVED. PROSTATE CANCER. BLADDER DYSFUNCTION DUE TO RADIATION. heart cathh. ex neck mass - Social History Smoking Status: Never smoker Smokeless Tobacco Status: No Alcohol use: none Drug use: none Current living situation: Home, With Family Activity Level: Uses cane/walker Recent Out of Country Travel Within the Last 8 Weeks: No Exposure or Possible Exposure to Illness During Travel: No - Family History Father Race: Family Member Ethnicity: Non- Living Status: Age at : 100 Cause of : Old age Hx Family Cardiac Disorders: Yes (Pacemaker) Mother Race: Family Member Ethnicity: Non- Living Status: Age at : 73 Cause of : Emphysema Hx Family Respiratory Disorders: Yes (Emphysema) Brother Race: Family Member Ethnicity: Non- Living Status: Age at : 81 Cause of : Accident Sister Race: Family Member Ethnicity: Non- Living Status: Age at : 65 Cause of : Emphysema Hx Family Respiratory Disorders: Yes (Emphysema) - Constitutional Constitutional: as per HPI - EENT Eyes: as per HPI Ears: as per HPI Nose, mouth and throat: as per HPI - Breasts Breasts: as per HPI - Cardiovascular Cardiovascular ROS IM: as per HPI, syncope - Respiratory Respiratory: as per HPI - Gastrointestinal Gastrointestinal: as per HPI - Genitourinary Genitourinary ROS male: as per HPI - Musculoskeletal Musculoskeletal ROS IM: as per HPI - Integumentary Integumentary IM: as per HPI - Neurological Neurological ROS: as per HPI - Psychiatric Psychiatric: anxiety, depression - Endocrine Endocrine IM: as per HPI - Hematologic/Lymphatic Hematologic/Lymphatic: as per HPI - Allergic/Immunologic Allergic/Immunologic: as per HPI Internal Medicine - CN: Meds Aspirin 81 mg PO DAILY 06/14/15 [History] Potassium Chloride [K-Tab ER] 20 meq PO DAILY 02/23/16 [History] Docusate [Colace] 100 mg PO DAILY PRN 10/27/16 [History] Hydrocortisone Valerate 1 appl TP DAILY PRN 10/27/16 [History] Omeprazole [PriLOSEC] 20 mg PO DAILY 10/27/16 [History] Triamterene/HCTZ 37.5/25mg [Dyazide] 1 each PO QAM 10/27/16 [History] Gluc/Jong-MSM#1/C/John/Veto/Bor [Osteo Bi-Flex Caplet] 1 tab PO DAILY 03/11/19 [History] LORazepam [Ativan] 0.5 mg PO BID PRN 03/11/19 [History] Metoprolol Succinate [Toprol Xl] 50 mg PO DAILY 03/11/19 [History] Mirabegron [Myrbetriq] 50 mg PO DAILY 03/11/19 [History] Multivitamin [Daily Multiple Vitamin] 1 tab PO DAILY 03/11/19 [History] OxyCODONE/APAP 5/325 [Percocet 5/325 MG] 1 tab PO Q6H PRN 03/11/19 [History] Rivaroxaban [Xarelto] 20 mg PO DAILY 03/11/19 [History] Sertraline [Zoloft] 50 mg PO DAILY 03/11/19 [History] hydrOXYzine HCl [Hydroxyzine HCl] 50 mg PO Q8H PRN 03/11/19 [History] Allergy/AdvReac Type Severity Reaction Status Date / Time oxybutynin Allergy Confusion Verified 03/11/19 10:37 Hospitalist - CN: Exam - Constitutional Vitals: Temp Pulse Resp BP Pulse Ox 97.7 F 136 17 121/72 93 03/12/19 18:44 03/12/19 23:32 03/12/19 23:32 03/12/19 23:32 03/12/19 23:32 General appearance IM: Present: cooperative, mild distress, A&O X 3, pleasant, obese, answers questions appropriately Exam: Patient examined at bedside. Patient reports mild pain post-procedure in back but denies any other symptoms or complaints on examination. VS: 97.7F temp, HR 136, RR 17, BP 121/72, SpO2 93% on RA. - Head Head exam: Present: atraumatic - Eye Eye exam: Present: PERRL, conjuntiva pink, sclera anicteric Pupils: Present: normal accommodation, PERRL - ENT ENT exam: Present: normal exam - Neck Neck exam general surgery: Present: normal inspection, supple, trachea midline - Respiratory Respiratory exam: Present: CTAB - Cardiovascular Cardiovascular exam IM: Present: irregular rhythm - GI/Abdominal GI/Abdominal exam IM: Present: soft, no peritoneal signs - Rectal Rectal exam: Present: deferred - Additional comments: exam deferred. - Extremities Exam Extremities exam IM: Present: warm, radial pulses palpable and symmetrical - Back Exam Back exam: Present: normal inspection - Neurological Exam Neurological exam: Present: alert, oriented X3, no focal deficits, strengths equal and symetr throughout - Psychiatric Psychiatric exam: Present: normal affect, normal mood - Skin Skin exam IM: Present: dry, intact Internal Medicine - CN: Reslt - Labs CBC & Chem 7: 03/13/19 01:35 03/13/19 01:35 Labs: Short CBC 03/12/19 03/13/19 Range/Units 11:05 01:35 WBC 9.8 9.4 (4.3-11.1) K/mcL Hgb 12.3 L 12.1 L (12.9-16.9) g/dL Hct 38.9 36.5 L (37.5-50.1) % Plt Count 254 245 (140-400) K/mcL Neutrophils # 7.6 (1.6-8.9) K/mcL BMP 03/12/19 03/13/19 11:05 01:35 Sodium 139 135 L Potassium 4.5 3.6 Chloride 103 99 Carbon Dioxide 30 H 27 BUN 24 H 22 Creatinine 1.06 0.97 Glucose 135 H 129 H Calcium 8.9 9.0 - Diagnostic Studies Other Images Additional comments: EXAMINATION: SPOT FLUOROSCOPIC IMAGES 03/11/2019 12:08 pm TECHNIQUE: Fluoroscopy was provided by the radiology department for procedure. Radiologist was not present during examination. FLUOROSCOPY TIME: 1 fluoroscopic spot image obtained over 4 seconds of fluoroscopy time. COMPARISON: MRI 01/23/2019 and radiograph from 02/21/2019. HISTORY: Intraprocedural imaging. FINDINGS: 1 spot image of the lumbar spine was obtained. Images demonstrate hardware placement over the lower lumbar spine at the disc space level described on MRI as L4-L5. XR/XR lumbar spine 1V IMPRESSION: Intraprocedural fluoroscopic spot images as above. See separate procedure report for more information. D/ / 03/11/2019 12:26:33 Ritesh Rendon MD / alverto Interpreting Provider: Ritesh Rendon MD Consult Discharge Plan - Plan Referrals: Amie Kramer, HEAT TRANSFER TECHNICIAN [Primary Care Provider] -
[2019-03-13 03:59] VITALS: BP 120/70
--- NOTE | 2019-03-13 06:20 | Event Note ---
Date of Encounter: 03/13/19 Time of Encounter: 00:07 I was consulted on this patient d/t Afib w/RVR requiring a Cardizem gtt. On exam, patient was tired and reported he did not sleep last night. Patient was appropriate and A&O x3. Alerted at 00:07 by patient's nurse ADARSH Fleming that the patient had number status IV and taken off his cardiac monitoring. Cardizem drip was positive. Patient's heart rate running in the 130s. Nurse reported patient was becoming confused and agitated. Went to see patient immediately and he remembered who I was but had transient periods of thinking he was at home. Patient refused to have IV access be done or work cardiac monitoring. Instructed nurse to patient's and/or daughter to try to reorient patient. We were able to reach the and daughter who spoke with the patient who continued to be very confused and argumentative. 01:14 daughter arrived and was able to help reorient the patient who agreed to have new IV access and were cardiac monitoring. I discussed the situation with the daughter who agreed with my assessment that patient's confusion was likely due to his lack of sleep and postsurgical status. Once IV access gained, one-time orders for Haldol and Benadryl IVP placed and administered. Patient able to sleep soundly with daughter sleeping in room as well. I phoned the patient's Danielle to give her an update on the patient's condition. Patient's relieved that we are able to reorient the patient, regain IV access, and begin Cardizem drip again. and daughter both agreed with plan of care and expressed appreciation. All questions answered. Nurse instructed to continue monitoring the patient very closely and alert me immediately of any adverse changes.
--- NOTE | 2019-03-13 07:54 | Electrocardiograph Report ---
[address] [address] Test Date: 2019-03-12 Pat Name: Juan J Mcnally Department: [id number] Room: [facility] Gender: M Electrical Power Engineer: : [id number] Requested By: Umm Bruner Order Number: [id number] Reading MD: Yusra Pabon Measurements Intervals [place] Rate: 131 P: PA: 0 QRS: 16 QRSD: 93 T: 0 QT: 303 QTc: 380 Interpretive Statements ATRIAL FIBRILLATION WITH RAPID VENTRICULAR RESPONSE INCOMPLETE RIGHT BUNDLE BRANCH BLOCK ST DEVIATION AND MODERATE T-WAVE ABNORMALITY, CONSIDER ANTERIOR ISCHEMIA Electronically Signed On 03-13-2019 7:52:36 EDT by Yusra Pabon
[2019-03-13] MEDS: *HR* Rivaroxaban 10 MG TABLET PO SCH (08:43)
[2019-03-13] MEDS: Aspirin 81 MG TAB.CHEW PO SCH (08:43)
[2019-03-13] MEDS: Metoprolol XL (24 HR) Succ 50 MG TAB.ER.24H PO SCH (08:43)
[2019-03-13] MEDS: Multivitamin Liquid 15 ML UDC PO SCH (08:43)
[2019-03-13] MEDS: *HR* LORazepam 0.5 MG TABLET PO PRN (08:43)
[2019-03-13] MEDS: *HR* HYDROcodone/Acet 5/325 mg TABLET PO PRN (08:51)
--- NOTE | 2019-03-13 08:57 | Orthopedics Progress Note ---
Date of Encounter: 03/13/19 Time of Encounter: 10:00 - Assessment and Plan (1) Atrial fibrillation with RVR Current Visit: Yes Status: Acute (2) Status post laminectomy Current Visit: Yes Status: Acute (3) Lumbar radiculopathy Current Visit: Yes Status: Chronic (4) Lumbar stenosis Current Visit: Yes Status: Chronic Qualifiers: Neurogenic claudication status: unspecified Qualified Code(s): M48.061 - Spinal stenosis, lumbar region without neurogenic claudication Subjective Principal diagnosis: s/p lami Interval history: POD#2 s/p Laminectomy L3-4 [Lumbar stenosis, lumbar radiculopathy] 03/11/19 Patient seen at bedside. Patient had overnight events of confusion and behavioral changes. Hospitalist was consulted. Input greatly appreciated. Patient appears improved today, however, he is expressing distress regarding his "need to go home". He states that he needs "to get home to my dog and my , I just need to go home". Patient educated regarding his heart and need for continued medication administration regarding his AFib with RVR. Cardiology continues with monitoring and medication adjustment. A&Ox3. Sitting in chair at bedside. Dressing and incision c/d/i No calf tenderness, erythema, or warmth. Neurovascularly intact b/l LE. Labwork, vitals, and medications reviewed. Pain control: Adequate Participating in therapy. All questions and concerns addressed. Educated on use of incentive spirometer, ambulation, and hydration. Patient educated on post-operative restrictions and care. Addressed: patient found to be in Afib RVR on POD#1. Cardiology was consulted for management. Patient currently on [facility] gtt drip. Input greatly appreciated. Patient course and disposition discussed with Dr. Jackman D/C plan: Home once medically stable for discharge - possibly today if rate and rhythm continues to improve. Objective Vital signs: Vital Signs Temp Pulse Resp BP Pulse Ox 03/13/19 02:00 98.1 F 91 17 120/70 98 03/12/19 23:32 136 17 121/72 93 03/12/19 22:26 73 108/73 03/12/19 21:25 75 118/75 03/12/19 20:55 84 107/70 03/12/19 20:40 95 105/70 98 03/12/19 20:38 100 90/62 03/12/19 18:44 97.7 F 141 19 111/79 98 03/12/19 13:26 110 95 Intake and Output 03/12/19 03/13/19 03/13/19 23:59 07:59 15:59 Intake Total 134.7 / 814.7 35.3 / 35.3 Balance 134.7 / 814.7 35.3 / 35.3 Intake: IV Fluids 14.7 / 114.7 35.3 / 35.3 Cardizem 50 MG In 0.9 % Sodium 14.7 / 14.7 35.3 / 35.3 Chloride 40 ML @ 5 MG/HR 5 mls/ hr IVC .Q10H [facility] Rx#:[id number] Oral 120 / 700 Other: Meal Dinner Percent of Meal Consumed 60% # Voids 3 # Urine Diapers 2 - Labs CBC & BMP: 03/13/19 01:35 03/13/19 01:35 Labs: Abnormal lab results RBC 4.12 M/mcL (4.19-5.50) L 03/13/19 01:35 Hgb 12.1 g/dL (12.9-16.9) L 03/13/19 01:35 Hct 36.5 % (37.5-50.1) L 03/13/19 01:35 MPV 9.2 fL (9.4-12.4) L 03/12/19 11:05 Sodium 135 mEq/L (136-145) L 03/13/19 01:35 Carbon Dioxide 30 mEq/L (23-29) H 03/12/19 11:05 BUN 24 mg/dL (8-23) H 03/12/19 11:05 Glucose 129 mg/dL (70-105) H 03/13/19 01:35 Consult Discharge Plan - Plan Referrals: Amie Kramer, TEMPORARY ADMINISTRATIVE ASSISTANT [Primary Care Provider] -
[2019-03-13] MEDS ORDERED: Diltiazem CD (24hr) 120 MG CAPSULE PO SCH (09:00)
--- NOTE | 2019-03-13 09:40 | Internal Med Progress Note ---
Hospitalist Progress Note - Encounter Date of Encounter: 03/13/19 Time of Encounter: 09:40 - Exam Vitals: Temp Pulse Resp BP Pulse Ox 98.1 F 91 17 120/70 98 03/13/19 02:00 03/13/19 02:00 03/13/19 02:00 03/13/19 02:00 03/13/19 02:00 - Time Spent with Patient Total time spent is greater than 50% in coordination of care (as documented) at patient's floor/unit and/or counseling patient: Internal Medicine: Result - Labs CBC & Chem 7: 03/13/19 01:35 03/13/19 01:35 Labs: Short CBC 03/12/19 03/13/19 Range/Units 11:05 01:35 WBC 9.8 9.4 (4.3-11.1) K/mcL Hgb 12.3 L 12.1 L (12.9-16.9) g/dL Hct 38.9 36.5 L (37.5-50.1) % Plt Count 254 245 (140-400) K/mcL Neutrophils # 7.6 (1.6-8.9) K/mcL BMP 03/12/19 03/13/19 11:05 01:35 Sodium 139 135 L Potassium 4.5 3.6 Chloride 103 99 Carbon Dioxide 30 H 27 BUN 24 H 22 Creatinine 1.06 0.97 Glucose 135 H 129 H Calcium 8.9 9.0 Consult Discharge Plan - Plan Referrals: Amie Kramer, MANAGER RELOCATION [Primary Care Provider] -
[2019-03-13] MEDS ORDERED: Diltiazem CD (24hr) 120 MG CAPSULE PO ONE (12:41)
--- NOTE | 2019-03-13 12:46 | Cardiology Progress Note ---
Date of Encounter: 03/13/19 Time of Encounter: 12:44 Assessment and Plan (1) Atrial fibrillation with RVR Current Visit: Yes Status: Acute Known hx of A-Fib, on Toprol XL 50mg daily and anticoagulated on Xarelto. S/P Laminectomy L3-4 03/11. Per pt, had not taken his meds since Monday. Home meds resumed yesterday Suspect RVR secondary to meds being held and back pain s/p laminectomy, fluid overload. Started on cardizem gtt yesterday--was at 2.5mg/hr this AM and transitioned to PO Cardizem CD 120mg daily. HR 90s-low 100s at bedside. Will increase Cardizem CD to 240mg daily with extra 120mg to be given now. Will re-evaluate in afternoon to see if HR is controlled. Once HR is controlled will sign off and coordinate outpt follow-up. (2) Fluid overload Current Visit: Yes Status: Acute Moderate BLE edema noted on exam. EF preserved on recent TTE. Suspect fluid overload secondary to IV fluids s/p surgery and Dyazide being held. Resumed home Dyazide. IV Lasix given yesterday--40mg QAM and 20mg QPM. No output recorded, but BLE edema improved today and ROBLES hose on. Qualifiers: Hypervolemia type: unspecified Qualified Code(s): E87.70 - Fluid overload, unspecified Discussion w patient/family: The assessment and plan as outlined above was discussed with the patient and/or family members who expressed understanding and agreement. All questions were answered. Thank you for involving us in the care of your patient. Please call with any questions. I will discuss all the above with Dr. Mendieta and make changes as necessary. Subjective Principal diagnosis: A-Fib Interval history: Back pain improved. No cardiac complaints today. Objective Vital Signs Temp Pulse Resp BP Pulse Ox 03/13/19 02:00 98.1 F 91 17 120/70 98 03/12/19 23:32 136 17 121/72 93 03/12/19 22:26 73 108/73 03/12/19 21:25 75 118/75 03/12/19 20:55 84 107/70 03/12/19 20:40 95 105/70 98 03/12/19 20:38 100 90/62 03/12/19 18:44 97.7 F 141 19 111/79 98 03/12/19 13:26 110 95 Intake and Output 03/12/19 03/13/19 03/13/19 23:59 07:59 15:59 Intake Total 134.7 / 814.7 35.3 / 35.3 Balance 134.7 / 814.7 35.3 / 35.3 Intake: IV Fluids 14.7 / 114.7 35.3 / 35.3 Cardizem 50 MG In 0.9 % Sodium 14.7 / 14.7 35.3 / 35.3 Chloride 40 ML @ 5 MG/HR 5 mls/ hr IVC .Q10H [facility] Rx#:[id number] Oral 120 / 700 Other: Meal Dinner Percent of Meal Consumed 60% # Voids 3 # Urine Diapers 2 1 General: Conversant, No Apparent Distress HEENT: Atraumatic, Normocephaly, Mucus Membranes Moist Neck: No JVD, Normal carotid pulses Cardiac: Other (irregularly irregular) Lungs: Normal Breath Sounds, No Wheeze, Rales, Rhonchi Neuro: Alert and responsive, No focal deficits noted Abdomen: Soft, Non-Tender Skin: No rashes noted on visualized skin Musculoskeletal: No Chest Wall Tenderness Extremities: Other (Mild BLE edema) Results 03/13/19 01:35 03/13/19 01:35 Lab Results 03/13/19 03/13/19 01:35 01:35 WBC 9.4 Hgb 12.1 L Hct 36.5 L Plt Count 245 Sodium 135 L Potassium 3.6 Chloride 99 Carbon Dioxide 27 BUN 22 Creatinine 0.97 Glucose 129 H Calcium 9.0 Short CBC 03/13/19 Range/Units 01:35 WBC 9.4 (4.3-11.1) K/mcL Hgb 12.1 L (12.9-16.9) g/dL Hct 36.5 L (37.5-50.1) % Plt Count 245 (140-400) K/mcL BMP 03/13/19 Range/Units 01:35 Sodium 135 L (136-145) mEq/L Potassium 3.6 (3.5-5.1) mEq/L Chloride 99 (98-107) mEq/L Carbon Dioxide 27 (23-29) mEq/L BUN 22 (8-23) mg/dL Creatinine 0.97 (0.70-1.30) mg/dL Glucose 129 H (70-105) mg/dL Calcium 9.0 (8.6-10.3) mg/dL Active Medications Acetaminophen (Tylenol) 650 mg PO Q6HR PRN PRN Reason: Mild Pain/Fever Stop: 09/10/19 13:03 Hydrocodone Bitart/Acetaminophen ([place] 5-325 Mg) 1 tab PO Q6HR PRN PRN Reason: Moderate Pain Stop: 09/10/19 13:03 Last Admin: 03/13/19 08:51 Dose: 1 tab Documented by: Aspirin (Aspirin) 81 mg PO DAILY [facility] Stop: 09/11/19 09:01 Last Admin: 03/13/19 08:43 Dose: 81 mg Documented by: Diltiazem HCl (Cardizem Cd) 120 mg PO ONCE ONE Stop: 03/14/19 12:42 Diltiazem HCl (Cardizem Cd) 240 mg PO DAILY [facility] Stop: 09/13/19 09:01 Docusate Sodium (Colace) 100 mg PO BID [facility] Stop: 09/10/19 21:01 Last Admin: 03/13/19 08:43 Dose: 100 mg Documented by: Docusate Sodium (Colace) 100 mg PO DAILY PRN; Protocol PRN Reason: Constipation Stop: 09/10/19 13:03 Hydroxyzine Pamoate (Vistaril) 50 mg PO Q8H PRN PRN Reason: Itching Lactated Ringer's (Lactated Ringers) 1,000 mls @ 100 mls/hr IVC .Q10H [facility] Stop: 09/10/19 13:03 Last Admin: 03/12/19 01:01 Dose: 100 mls/hr Documented by: Lorazepam (Ativan) 0.5 mg PO BID PRN PRN Reason: Anxiety Stop: 09/10/19 13:03 Last Admin: 03/13/19 08:43 Dose: 0.5 mg Documented by: Metoprolol Succinate (Toprol Xl) 50 mg PO DAILY [facility] Stop: 09/11/19 09:01 Last Admin: 03/13/19 08:43 Dose: 50 mg Documented by: Multivitamins/Minerals (Cerovite Liquid) 15 ml PO DAILY [facility] Stop: 09/11/19 09:01 Last Admin: 03/13/19 08:43 Dose: 15 ml Documented by: Naloxone HCl (Narcan) 0.4 mg IVP Q2MPRN PRN PRN Reason: SEE COMMENTS Stop: 09/10/19 13:03 Omeprazole (Prilosec) 20 mg PO DAILY [facility]; Protocol Stop: 09/11/19 09:01 Last Admin: 03/13/19 08:43 Dose: 20 mg Documented by: Oxycodone HCl (Roxicodone) 10 mg PO Q6HR PRN PRN Reason: Severe Pain Stop: 09/10/19 13:03 Last Admin: 03/12/19 17:15 Dose: 10 mg Documented by: Potassium Chloride (Potassium Chloride) 20 meq PO DAILY [facility] Stop: 09/11/19 09:01 Last Admin: 03/13/19 08:43 Dose: 20 meq Documented by: Rivaroxaban (Xarelto) 20 mg PO DAILY [facility] Stop: 09/11/19 09:01 Last Admin: 03/13/19 08:43 Dose: 20 mg Documented by: Sertraline HCl (Zoloft) 50 mg PO DAILY [facility] Stop: 09/11/19 09:01 Last Admin: 03/13/19 08:43 Dose: 50 mg Documented by: Triamterene/HCTZ (Dyazide) 1 each PO QAM [facility] Stop: 09/11/19 09:01 Last Admin: 03/13/19 08:43 Dose: 1 each Documented by: - Imaging and Cardiology Stress Test: report reviewed Echo: report reviewed - EKG Interpretation EKG results cardiology: other (12 hr tele AVG HR 101, A-Fib) Consult Discharge Plan - Plan Referrals: Amie Kramer, HARDWARE DESIGNER [Primary Care Provider] -
--- NOTE | 2019-03-13 14:43 | Discharge Summary ---
- NOTES TO OUTPATIENT PROVIDER Notes to Outpatient Provider: Patient found to be in Afib RVR on POD#1. Cardiology was consulted for management. Their input and management was greatly appreciated. Patient placed on Tele and Cardizem gtt drip. Patient transitioned to PO Cardizem on POD#2 with satisfactory rhythm/rate control per Cardiology. Outpatient Cardio follow up requested. Hospitalist input greatly appreciated as well. Patient has been reoriented. Encouraged rest and appropriate hydration upon return to home. PCP follow up for medical management as new medications were initiated is requested for optimal patient recovery Date of Encounter: 03/13/19 Time of Encounter: 14:21 - Discharge Diagnosis (1) Atrial fibrillation with RVR Priority: Primary Status: Acute (2) Status post laminectomy Priority: Primary Status: Acute (3) Lumbar radiculopathy Priority: Primary Status: Chronic (4) Lumbar stenosis Priority: Primary Status: Chronic Qualifiers: Neurogenic claudication status: unspecified Qualified Code(s): M48.061 - Spinal stenosis, lumbar region without neurogenic claudication (5) Fluid overload Priority: Primary Status: Resolved Qualifiers: Hypervolemia type: unspecified Qualified Code(s): E87.70 - Fluid overload, unspecified (6) HLD (hyperlipidemia) Priority: Secondary Status: Chronic Qualifiers: Hyperlipidemia type: pure hypercholesterolemia Qualified Code(s): E78.00 - Pure hypercholesterolemia, unspecified; E78.0 - Pure hypercholesterolemia (7) HTN (hypertension) Priority: Secondary Status: Chronic Qualifiers: Hypertension type: essential hypertension Qualified Code(s): I10 - Essential (primary) hypertension (8) Urinary incontinence Priority: Secondary Status: Chronic Qualifiers: Urinary Incontinence type: unspecified incontinence Qualified Code(s): R32 - Unspecified urinary incontinence - Hospital Course Hospital course: Mr. Mcnally is a 84 year old male POD#2 s/p Laminectomy L3-4 [Lumbar stenosis, lumbar radiculopathy] 03/11/19 Patient seen at bedside. He admits to significant improvement in his preoperative symptoms. Family at bedside. Patient had overnight events of confusion and behavioral changes. Hospitalist was consulted. Input greatly appreciated. Patient improved through today with progression of rate control with completion of Cardizem drip and transition to oral Cardizem. Cardiology continues with monitoring and medication adjustment. Spoke with Cardiology who state if rate continues controlled that he may discharge to home with outpatient cardiology follow up and initiation of Cardizem to home medic ations. A&Ox3. Lying in bed. Labwork, vitals, and medications reviewed. Pain control: Adequate Participating in therapy. All questions and concerns addressed. Educated on use of incentive spirometer, ambulation, and hydration. Patient educated on post-operative restrictions and care. Addressed: patient found to be in Afib RVR on POD#1. Cardiology was consulted for management. Their input and management is greatly appreciated. Patient placed on Tele and Cardizem gtt drip. Patient as stated above transitioned to PO Cardizem on POD#2 with satisfactory rhythm/rate control per Cardiology. Hospitalist input greatly appreciated as well. Patient has been reoriented. Encouraged rest and appropriate hydration upon return to home. D/C plan: Home today. Progressed from intravenous analgesic needs to oral analgesic needs only. Remained neurovascularly intact and mobilized satisfactorily. All radiographic studies were satisfactory. Patient course and disposition has been discussed with Dr. Jackman. Patient is discharged to rehab with plan for rehabilitation and outpatient orthopedic follow up has been arranged. - Time Spent with Patient Total time spent providing and/or coordinating discharge services: - Discharge Medications Prescriptions: New Diltiazem CD (24hr) [Cardizem CD] 240 mg PO DAILY 30 Days #60 cap.er.24h Acetaminophen [Non-Aspirin Extra Strength] 500 mg PO Q6H PRN 7 Days #28 tablet PRN Reason: Mild To Moderate Pain Continued Aspirin 81 mg PO DAILY Hydrocortisone Valerate 1 appl TP DAILY PRN PRN Reason: Rash Docusate [Colace] 100 mg PO DAILY PRN PRN Reason: Constipation Gluc/Jong-MSM#1/C/John/Veto/Bor [Osteo Bi-Flex Caplet] 1 tab PO DAILY hydrOXYzine HCl [Hydroxyzine HCl] 50 mg PO Q8H PRN PRN Reason: Itching LORazepam [Ativan] 0.5 mg PO BID PRN PRN Reason: Anxiety Metoprolol Succinate [Toprol Xl] 50 mg PO DAILY Mirabegron [Myrbetriq] 50 mg PO DAILY Multivitamin [Daily Multiple Vitamin] 1 tab PO DAILY OxyCODONE/APAP 5/325 [Percocet 5/325 MG] 1 tab PO Q6H PRN PRN Reason: Pain Rivaroxaban [Xarelto] 20 mg PO DAILY Sertraline [Zoloft] 50 mg PO DAILY Potassium Chloride [K-Tab ER] 20 meq PO DAILY Triamterene/HCTZ 37.5/25mg [Dyazide] 1 each PO QAM Omeprazole [PriLOSEC] 20 mg PO DAILY Home Medications: Aspirin 81 mg PO DAILY 06/14/15 [History] Potassium Chloride [K-Tab ER] 20 meq PO DAILY 02/23/16 [History] Docusate [Colace] 100 mg PO DAILY PRN 10/27/16 [History] Hydrocortisone Valerate 1 appl TP DAILY PRN 10/27/16 [History] Omeprazole [PriLOSEC] 20 mg PO DAILY 10/27/16 [History] Triamterene/HCTZ 37.5/25mg [Dyazide] 1 each PO QAM 10/27/16 [History] Gluc/Jong-MSM#1/C/John/Veto/Bor [Osteo Bi-Flex Caplet] 1 tab PO DAILY 03/11/19 [History] LORazepam [Ativan] 0.5 mg PO BID PRN 03/11/19 [History] Metoprolol Succinate [Toprol Xl] 50 mg PO DAILY 03/11/19 [History] Mirabegron [Myrbetriq] 50 mg PO DAILY 03/11/19 [History] Multivitamin [Daily Multiple Vitamin] 1 tab PO DAILY 03/11/19 [History] OxyCODONE/APAP 5/325 [Percocet 5/325 MG] 1 tab PO Q6H PRN 03/11/19 [History] Rivaroxaban [Xarelto] 20 mg PO DAILY 03/11/19 [History] Sertraline [Zoloft] 50 mg PO DAILY 03/11/19 [History] hydrOXYzine HCl [Hydroxyzine HCl] 50 mg PO Q8H PRN 03/11/19 [History] Acetaminophen [Non-Aspirin Extra Strength] 500 mg PO Q6H PRN 7 Days #28 tablet 03/13/19 [Rx] Diltiazem CD (24hr) [Cardizem CD] 240 mg PO DAILY 30 Days #60 cap.er.24h 03/13/19 [Rx] Allergies/Adverse Reactions: Allergy/AdvReac Type Severity Reaction Status Date / Time oxybutynin Allergy Confusion Verified 03/11/19 10:37 Date of admission: 03/13/19 11:23 Primary care physician: Amie Kramer CNP Consults: 03/11/19 13:02 Consult to Nurse Navigator [CONS] Routine Comment: spine navigator Consult to Occupational Therapy [CONS] Routine Comment: Evaluate, develop and implement POC Reason for Consult: Postoperative rehabilitation Does patient have active BEDREST order?: No Is patient medically & hemodynamically stable?: Yes Patient assessed for mobility or mobilized this visit?: No Consult to Physical Therapy [CONS] Routine Comment: Evaluate, develop and implement POC Reason for Consult: Postoperative rehabilitation Does patient have active BEDREST order?: No Is patient medically & hemodynamically stable?: Yes Patient assessed for mobility or mobilized this visit?: No 03/12/19 08:05 Consult to Cardiology [CONS] Routine Comment: Consulting Provider: Cardiology [place] Reason for Consult: New onset A. Fib RVR Call Completed: Yes 03/12/19 08:07 Consult to Hospitalist [CONS] Routine Consulting Provider: Hospitalist Bina Reason for Consult: A. Fib with RVR Call Completed: Yes Discharging clinician: Flaquito Jackman Jr Anticipated date of discharge: 03/13/19 - VTE Documentation of Mechanical Device: Graduated compression elastic hosiery Labs on day of discharge: Labs from last 24 hours 03/13/19 03/13/19 01:35 01:35 WBC 9.4 RBC 4.12 L Hgb 12.1 L Hct 36.5 L MCV 88.6 MCH 29.4 MCHC 33.2 RDW 14.4 Plt Count 245 MPV 10.1 Sodium 135 L Potassium 3.6 Chloride 99 Carbon Dioxide 27 BUN 22 Creatinine 0.97 Est GFR ( Amer) > 60 Est GFR (Non-Af Amer) > 60 BUN/Creatinine Ratio 23 Glucose 129 H Calculated Osmolality 285 Calcium 9.0 - Impressions ITS Impressions Fluoroscopy 03/11/19 11:07 IMPRESSION: Intraprocedural fluoroscopic spot images as above. See separate procedure report for more information. D/ / 03/11/2019 12:26:33 Ritesh Rendon MD / alverto Interpreting Provider: Ritesh Rendon MD Lumbar Spine X-Ray 03/11/19 11:07 IMPRESSION: Intraprocedural fluoroscopic spot images as above. See separate procedure report for more information. D/ / 03/11/2019 12:26:33 Ritesh Rendon MD / alverto Interpreting Provider: Ritesh Rendon MD - Patient Status Disposition: Home, Self-Care Condition: Fair Functional capacity at discharge: uses cane/walker Overall status at discharge: patient is progressing back to baseline - Discharge Instructions Follow Up With: Amie Kramer, INHALATION THERAPY TEACHER [Primary Care Provider] - - Diet and Activity Activity: as per physical therapy Diet: advance to your usual diet
--- NOTE | 2019-03-13 16:14 | Event Note ---
Date of Encounter: 03/13/19 Time of Encounter: 15:00 Medicine was consulted last evening due to confusion and rapid atrial fibrillation. Mental status clear now and cardiology managing atrial fibrillation. Will sign off. Thank you.
[2019-03-14] MEDS ORDERED: Diltiazem CD (24hr) 120 MG CAPSULE PO SCH (09:00)
== END 2019-03-13 16:00 | disposition home or self-care (01) ==
LOC: 3NENU 08:29 → SAMDAY 08:29 → 3NENU 13:04
PROVIDERS: ADMIT Orthopaedic Surgery Orthopaedic Surgery of the Spine; ATTEND Orthopaedic Surgery Orthopaedic Surgery of the Spine